=== PATIENT | male | born 1995 | race Caucasian/White ===

== ENCOUNTER 2019-04-20 12:54 | Emergency (ER) | payer OTHER ==
[~2019-04-20] VITALS: Ht 188 cm; Wt 90.9 kg
[2019-04-20] MEDS ORDERED: ketorolac trometh inj. 60 MG/2 ML VIAL IM ONE (13:15)
[2019-04-20] MEDS ORDERED: HYDROcodone/acetaminophen 5mg/325mg tablet PO ONE ×2 (13:15→21:10)
[2019-04-20] MEDS ORDERED: morphine 4 MG/ML inj SYRINge IV ONE (18:15)
[2019-04-20] MEDS ORDERED: ondansetron/PF 4mg/2ml inj IV ONE (19:00)
--- NOTE | 2019-04-20 19:00 | NUR ---
Pt medicated with Morphine 4 mg IVP. Plan is to reassess and see if Pt is able to transfer OOB and perform gait test.
--- NOTE | 2019-04-20 19:10 | NUR ---
VERBAL ORDER FOR GAIT TEST, GOAL IS TO SEE IF PATIENT CAN WALK, IF NOT FURTHER FOLLOW-UP AND CONSULTATIONS NEEDED.
--- NOTE | 2019-04-20 19:32 | NUR ---
Dr. Lovelace made aware Pt not able to transfer OOB for gait test d/t pain.
[2019-04-20] MEDS ORDERED: triamcinolone acetonide 40mg/ml inj IM ONE (21:10)
[2019-04-20] MEDS ORDERED: HYDR-3965 PO (21:26)
[2019-04-20] MEDS ORDERED: CYCL-1 PO (21:26)
[2019-04-20] MEDS ORDERED: DICL50TA8 PO (21:26)
[2019-04-20 21:52] VITALS: BP 143/59
== END 2019-04-20 21:45 | disposition home or self-care (01) ==
LOC: ER 12:55
DX: M51.26 Other intervertebral disc displacement, lumbar region (principal); Z88.6 Allergy status to analgesic agent
CPT/HCPCS: 72100; 72148; 96372; 96374; 96375; 99284; J1885; J2270; J2405; J3301